=== PATIENT | female | born 1990 | race Hispanic/Latino ===

== ENCOUNTER 2020-04-05 05:30 | Inpatient (IN) | payer BC, OTHER ==
[2020-04-05] MEDS ORDERED: Lactated Ringer's 1,000 ML IV SCH (06:13)
[2020-04-05] MEDS ORDERED: Ondansetron PF 4 MG/2 ML Vial IVP PRN ×3 (06:13→13:45)
[2020-04-05] MEDS ORDERED: Ibuprofen 800 MG TAB PO PRN (06:13)
[2020-04-05] MEDS ORDERED: Promethazine HCl 25 MG/ML VIAL IM PRN ×2 (06:13→09:45)
[2020-04-05] MEDS ORDERED: HYDROcodone/Acetaminophen 5/325 mg Tablet PO PRN ×3 (06:13→13:45)
[2020-04-05] MEDS ORDERED: Lidocaine 1% (PF) 30 ML VIAL SC PRN (06:13)
[2020-04-05] MEDS ORDERED: hydrALAZINE 20 MG/ML VIAL SLOW IVP PRN ×2 (06:13→13:45)
[2020-04-05] MEDS ORDERED: NS / Oxytocin 40 units/1000ml 1,000 ML IV PRN (06:13)
[2020-04-05] MEDS ORDERED: NS w/ Oxytocin 10 units 500 ML IV SCH ×2 (06:13)
[2020-04-05] MEDS ORDERED: Butorphanol Tartrate 1 MG/ML VIAL SLOW IVP PRN (06:13)
[2020-04-05 06:22] VITALS: BMI 29.8
[2020-04-05 06:29] LABS: Hemoglobin 8.9 g/dL (12.0-16.0); Mean Corpuscular HGB CONC 32.2 g/dL (32.0-36.0); Mean Corpuscular Hemoglobin 25.1 pg (27.0-31.0); Mean Corpuscular Volume 77.8 fL (78.0-98.0); Mean Platelet Volume 9.2 fL (7.4-10.4); Platelet Count 222 thou/uL (130-400); RBC Distribution Width 14.2 % (11.5-14.5); Red Blood Cell (RBC) Count 3.55 mill/uL (4.20-5.40); White Blood Cell (WBC) Count 9.3 thou/uL (4.8-10.8)
[2020-04-05 07:06] LABS: HBSAg Index 0.13 S/CO (0-0.99); Hep B Surf Ag Non-Reactive S/CO (NonReactive); Syphilis Antibody Nonreactive (Nonreactive); Syphilis Antibody Index 0.06 S/CO (<1.00 Non-Reactive)
[2020-04-05] MEDS ORDERED: Fentanyl 4 mcg/Bup 0.1% Cadd 100 ML ONE (07:55)
[2020-04-05] MEDS ORDERED: Bupivacaine/Epinephrine 0.25% 30 ML VIAL ONE (09:01)
--- NOTE | 2020-04-05 09:39 | PDOC.LDHP ---
Labor and Delivery H&P Chief complaint: scheduled induction (elective) HPI: Here for elective IOL. Current gestational age (weeks): 39 Due date: 04/07/20 Dating criteria: first trimester ultrasound Grav: 3 Para: 2 OB History Details: previous x 2 Current complications: none Abnormal US findings: No Past Medical History: ANEMIA Current medications: pre-charlene vitamins, iron Previous surgical history: none Allergies/Adverse Reactions: Allergies Allergy/AdvReac Type Severity Reaction Status Date / Time No Known Allergies Allergy Unverified 04/05/20 06:23 Social history: none - Physical Exam Vital signs reviewed and normal: yes General: NAD Heart: RRR Lungs: CTAB Abdomen: gravid Extremeties: no edema FHT: category 1 - Vaginal Exam cm dilated: 3 Effacement: 50% Station: -1 - OB Labs Blood type: A RH: positive Antibody Screen: negative HIV: negative RPR: negative HEPSAg: negative 1 hour GCT: negative GBS: negative Urine drug screen: negative Rubella: non-immune - Assessment L&D Assessment: elective induction at term - Plan Plan: admit to L&D, informed consent obtained, anesthesia consult for pain management
[2020-04-05] MEDS ORDERED: Fentanyl 4 mcg/Bupivacaine 0.1% Cassette 100 ML EPIDURAL SCH (09:45)
[2020-04-05] MEDS ORDERED: Acetaminophen 325 MG TAB PO PRN (09:45)
[2020-04-05] MEDS ORDERED: diphenhydrAMINE 50 MG/ML VIAL IVP PRN (09:45)
[2020-04-05] MEDS ORDERED: Lactated Ringer's 500 ML IV PRN (09:45)
[2020-04-05] MEDS ORDERED: Communication Order-Pharmacy FS SCH (09:45)
[2020-04-05] MEDS ORDERED: EPHEDRINE 25 MG/5 ML SYRINGE SLOW IVP PRN (09:45)
[2020-04-05] MEDS ORDERED: Naloxone HCl 0.4 mg/ml Vial IVP PRN ×2 (09:45)
--- NOTE | 2020-04-05 13:19 | PDOC.OPDEL ---
OB Operative/Delivery Note Delivery Dr/Surgeon: Grady Pre-Delivery Diagnosis: elective induction Procedure/Post Delivery Dx: spontaneous vaginal delivery Weeks gestation: 39 Anesthesia: epidural - Findings A Sex: female - 1 min: 9 - 5 min: 10 - Additional Findings/Plan Placenta delivered: spontaneous Repaired Obstetrical Laceration: 1st degree Estimated blood loss: 100ml Compilations/Other Findings: loose nuchal Post delivery plan: routine recovery
[2020-04-05] MEDS ORDERED: Milk Of Magnesia 30 ML UDCUP PO PRN (13:45)
[2020-04-05] MEDS ORDERED: Benzocaine-Menthol 82.5 ML CAN TOP PRN (13:45)
[2020-04-05] MEDS ORDERED: NS / Oxytocin 40 units/1000ml 1,000 ML IV SCH (13:45)
[2020-04-05] MEDS ORDERED: Bisacodyl 10 MG SUPP PR PRN (13:45)
[2020-04-05] MEDS ORDERED: Preparation H Ointment 28 GM TUBE PR PRN (13:45)
[2020-04-05] MEDS ORDERED: diphenhydrAMINE 25 MG CAP PO PRN (13:45)
[2020-04-05] MEDS ORDERED: Adacel (T-DAP) 0.5 ML SYRINGE IM ONE (14:00)
[2020-04-05] MEDS: Ferrous Sulfate 325 MG TAB PO SCH (17:37)
[2020-04-05] MEDS: Ibuprofen 800 MG TAB PO SCH ×2 (17:37→21:42)
[2020-04-05] MEDS: HYDROcodone/Acetaminophen 5/325 mg Tablet PO PRN (18:48)
[2020-04-05] MEDS: Docusate Calcium (SURFAK) 240 MG CAP PO SCH (21:42)
[2020-04-06 05:41] LABS: Hemoglobin 8.7 g/dL (12.0-16.0)
[2020-04-06] MEDS: Ibuprofen 800 MG TAB PO SCH ×2 (05:49→14:08)
--- NOTE | 2020-04-06 08:45 | PDOC.PP ---
Post Progress Note Post Day #: 1 Subjective: doing well, some latch issues, desires DC home today PO intake tolerated: yes Flatus: yes Ambulation: yes Vital Signs (12 hours) Temp Pulse Resp BP Pulse Ox 04/06/20 07:54 97.9 F 63 20 120/73 99 04/06/20 07:45 99 04/06/20 04:40 98.1 F 66 15 124/65 04/05/20 23:45 98.0 F 77 15 112/65 Weight Weight 163 lb - Physical Examination General: NAD Respiratory: non-labored breathing Abdominal: no distention Fundus firm & at: below umb Psychiatric: A&Ox3, normal affect Result Diagrams: 04/06/20 05:25 Additional Labs: Post Labs Blood Type A POSITIVE 04/05/20 06:42 Hep Bs Antigen Non-Reactive S/CO (NonReactive) 04/05/20 06:18 (1) Vaginal delivery Code(s): O80 - ENCOUNTER FOR FULL-TERM UNCOMPLICATED DELIVERY Status: Acute (2) Anemia Code(s): D64.9 - ANEMIA, UNSPECIFIED Status: Acute Qualifiers: Anemia type: iron deficiency (3) 39 weeks gestation of Code(s): Z3A.39 - 39 WEEKS GESTATION OF Status: Acute - Assessment/Plan PPD1 doing well, no concerns, no symptoms of anemia, continue iron at home.
[2020-04-06] MEDS: Docusate Calcium (SURFAK) 240 MG CAP PO SCH (08:55)
[2020-04-06] MEDS: Ferrous Sulfate 325 MG TAB PO SCH (08:55)
[2020-04-06] MEDS ORDERED: Prenatal Vitamin 1 TAB PO SCH (09:00)
[2020-04-06 11:56] VITALS: BP 123/74; TEMP 98.2
[2020-04-06] MEDS: HYDROcodone/Acetaminophen 5/325 mg Tablet PO PRN (12:16)
== END 2020-04-06 16:25 | disposition home or self-care (01) | DRG 807 ==
LOC: L&D 05:55 → 3SW 16:12
PROVIDERS: ADMIT Obstetrics & Gynecology; ATTEND Obstetrics & Gynecology
PROC: 10E0XZZ Delivery of Products of Conception, External Approach (ICD-10-PCS; principal; 2020-04-05)
PROC: 0HQ9XZZ Repair Perineum Skin, External Approach (ICD-10-PCS; 2020-04-05)
DX: O69.81X0 Labor and delivery complicated by cord around neck, without compression, not applicable or unspecified (principal); Z37.0 Single live birth; O70.0 First degree perineal laceration during delivery; O99.02 Anemia complicating childbirth; D50.9 Iron deficiency anemia, unspecified; Z3A.39 39 weeks gestation of pregnancy
CPT/HCPCS: 36415; 51702; 85014; 85018; 85027; 86780; 86850; 86870; 86900; 86901; 86922; 87340; 87635; J2590; U0003